=== PATIENT | male | born 1965 | race Caucasian/White ===

== ENCOUNTER 2021-03-10 08:06 | Emergency (ER) | payer BC ==
[~2021-03-10] VITALS: Ht 170.2 cm; Wt 77.1 kg
[~2021-03-10 08:06] MED LIST: IBUP-1518 PO; [UNRECOGNIZED DRUG - CODE] PO
[2021-03-10 09:06] VITALS: BP_SYST 139
--- NOTE | 2021-03-10 09:30 | NUR ---
Patient to ER bed 3 to gown for evaluation. Side rails up. REPORT RECIEVED FROM FARHAN OLGUIN
--- NOTE | 2021-03-10 09:35 | NUR ---
ER DR. KIM AT THE BEDSIDE EXAMINING PT
--- NOTE | 2021-03-10 09:40 | NUR ---
PT CAME IN FROM HOME C/O ABD PAIN STARTING AROUND 0100, CRAMPING, DIARRHEA, N/V. STATES HE HAD TAKE OUT LAST NIGHT AND THINKS THAT COULD BE THE CAUSE OF HIS SYMPTOMS. PT PRESENTS AOX4, V/S STABLE, AMBULATORY.
[2021-03-10] MEDS ORDERED: ONDANSETRON 4 MG ODT TAB PO ONE (09:45)
[2021-03-10] MEDS ORDERED: DIPHENOXYLATE HCL/ATROP SULF 2.5 MG TAB PO ONE (09:45)
[2021-03-10] MEDS ORDERED: KETOROLAC TROMETHAMINE 60 MG/2 ML VIAL IM ONE (09:45)
[2021-03-10 10:01] LABS: BASOPHILS % (AUTO) 0.2 % (0.0-2.0); EOSINOPHILS # (AUTO) 0.5 K/uL (0.0-0.4); EOSINOPHILS % (AUTO) 3.9 % (0.0-4.0); HEMATOCRIT 45.8 % (36-54); HEMOGLOBIN 15.5 g/dL (14.0-18.0); LYMPHOCYTES % (AUTO) 7.2 % (20.5-51.5); MEAN CORPUSCULAR HEMOGLOBIN 29 pg (27-31); MEAN CORPUSCULAR HGB CONC 34 % (32-36); MEAN CORPUSCULAR VOLUME 86 fL (79.0-98.0); MONOCYTES # (AUTO) 0.5 K/uL (0.0-1.0); MONOCYTES % (AUTO) 3.7 % (1.7-9.3); NEUTROPHILS # (AUTO) 11.3 K/uL (1.8-7.7); PLATELET COUNT (AUTO) 263 K/uL (130-430); RED CELL DISTRIBUTION WIDTH 13.3 % (9.0-15.0); WHITE BLOOD COUNT (AUTO) 13.3 K/uL (4.8-10.8)
[2021-03-10 10:13] LABS: CALCIUM 9.5 mg/dL (8.4-11.0); CREATININE 0.89 mg/dL (0.55-1.30); POTASSIUM 4.5 mmol/L (3.5-5.1)
[2021-03-10 10:24] LABS: ALBUMIN 4.2 g/dL (3.4-4.8); TOTAL BILIRUBIN 0.6 mg/dL (0.0-1.0)
--- NOTE | 2021-03-10 10:30 | NUR ---
PT LAYING IN GURNEY, AWAKE, NO DISTRESS
[2021-03-10] MEDS ORDERED: LOM2.5 PO (10:56)
[2021-03-10] MEDS ORDERED: ONDA-8 TL (10:56)
[2021-03-10 11:18] VITALS: BP_SYST 117
--- NOTE | 2021-03-10 11:20 | NUR ---
Patient given written and verbal discharge instructions and verbalizes understanding. ER MD discussed with patient the results and treatment provided. Patient in stable condition. ID arm band removed. Rx of LOMOTIL AND ZOFRAN given. Patient educated on pain management and to follow up with PMD. Pain Scale 0/10. Opportunity for questions provided and answered. Medication side effect fact sheet provided.
== END 2021-03-10 11:18 | disposition home or self-care (01) ==
LOC: SED 08:06
DX: K52.9 Noninfective gastroenteritis and colitis, unspecified (principal); K21.9 Gastro-esophageal reflux disease without esophagitis; Z88.0 Allergy status to penicillin; Z79.899 Other long term (current) drug therapy
CPT/HCPCS: 36415; 80053; 83690; 85025; 96372; 99283; J1885; Q0162